=== PATIENT | female | born 1970 | race Two or more races ===

== ENCOUNTER 2021-10-14 05:46 | Emergency (ER) | payer BC, OTHER ==
[~2021-10-14] VITALS: Ht 160 cm; Wt 99.8 kg
[2021-10-14 05:46] VITALS: BP 146/99
== END 2021-10-14 08:56 | disposition left against medical advice (07) ==
LOC: ER 05:46
DX: M79.605 Pain in left leg (principal); Z53.21 Procedure and treatment not carried out due to patient leaving prior to being seen by health care provider